=== PATIENT | female | born 1995 | race African-American/Black ===

== ENCOUNTER 2023-02-19 13:29 | Emergency (ER) | payer SELFPAY ==
--- NOTE | ~2023-02-19 | US_ITS ---
EXAMINATION: US OBSTETRICAL ULTRASOUND CLINICAL INFORMATION: Abdominal pain. Positive . COMPARISON: None available. LMP: 01/12/2023. Gestational age by maternal dates is 5 weeks 3 days. Estimated date of delivery by maternal dates is 10/19/2023. TECHNIQUE: Transabdominal and transvaginal pelvic ultrasound was performed. Transvaginal exam was performed for better visualization of the uterus and ovaries. FINDINGS: The uterus measures 10.2 x 5.6 x 6.9 cm in dimension. There is an intrauterine gestational sac. Mean Sac diameter measures 0.6 cm suggesting gestational age of 5 weeks 1 day. No pole or yolk sac seen. The right ovary is normal and measures 2.0 x 1.8 x 2.1 cm. The left ovary measures 4.1 x 3 x 3.7 cm. There are 2 left ovarian cysts measuring 2.8 x 2.4 x 2.6 cm and 1.7 x 2 x 2.3 cm. There is no fluid in the pelvis. US/US OB pelvic and transvaginal IMPRESSION: Intrauterine gestational sac. Mean sac diameter suggests gestational age 5 weeks 1 day. No pole or yolk sac seen.
[2023-02-19 13:41] VITALS: BP 122/71; PULSE 64; RESP 20; TEMP 36.6; O2SAT 99; BMI 45.7
--- NOTE | 2023-02-19 13:41 | ED.GENADULT ---
HPI - General Adult General Chief complaint: Abdominal Pain Stated complaint: Abdominal cramps - Time Seen by Provider: 02/19/23 22:34 Source: patient and family Mode of arrival: ambulatory History of Present Illness HPI narrative: 27-year-old female who presents with lower abdominal cramping but denies any vaginal bleeding or discharge and denies any dysuria. Patient states that she recently moved here from [place] and her LMP is 01/12. Patient denies any fever, chills, nausea, vomiting. Related Data Allergies Allergy/AdvReac Type Severity Reaction Status Date / Time No Known Allergies Allergy Verified 02/19/23 13:40 Review of Systems Review of Systems: Pertinent positives and negatives as stated in HPI PMFSH Past Medical History Source: nursing notes reviewed Social History Social History Advance Directives: No Advance Directives Information Provided: No Physical Exam ED Vital Signs: Vital Signs - 24 hr 02/19/23 13:41 02/19/23 21:04 02/19/23 22:27 Temperature 98 F 96.7 F L 98.2 F Pulse Rate 64 54 70 Respiratory Rate 20 16 18 Blood Pressure 122/71 103/58 L 105/83 Pulse Oximetry 99 100 99 Oxygen Delivery Method Room Air Room Air Room Air BMI result Body Mass Index 45.7 VITAL SIGNS: Reviewed. GENERAL: Well developed, well nourished, in no acute distress. HEAD: Normocephalic/atraumatic EYES: PERRLA, EOMI EARS: Ext canals without abnormality NOSE: Nares patent bilateral OROPHARYNX: no oral lesions noted, posterior pharynx clear NECK: Supple, no adenopathy LUNGS: Normal breath sounds. No adventitious sounds or accessory muscle use. SpO2<99> CARDIOVASCULAR: Regular rate and rhythm without noted murmurs ABDOMEN: Soft, non-tender, non-distended with bowel sounds. MUSCULOSKELETAL: No tenderness, deformities, or effusions noted on gross inspection. EXTREMITIES: No cyanosis, clubbing or edema. SKIN: Inspection of the skin reveals no rashes NEUROLOGIC: Alert and oriented x 4. Strength and sensation to light touch were grossly intact x 4. Course Course Course Narrative: This is an RME: Additional HPI, ROS, PE not included below will be deferred to primary provider. This is a 27 year old female, ?5 week , (3 miscarriages), presenting to the emergency department with a complaint of lower abdominal cramping for the last several weeks. She had an at home test last week. No vaginal bleeding or discharge. She is moving to the area and has not had any OBGYN care as of yet for this . Attended to be seen at [facility] last week but left without being seen due to extensive wait time. Last menstrual period January 12 Plan: Labs, UA, ultrasound Medical Decision Making Medical Decision Making [facility] Narrative: 27-year-old female with history and clinical presentation, DDX: Ectopic, IUP, UTI, SAB I reviewed all investigations and hematologic indices are negative for leukocytosis or left shift, platelet count is noted to be 140 and there are no comparison lab indices as patient is from [place]. She does appear to have a normocytic anemia which is likely chronic given the lack of clinical symptoms and no endorsement of any acute bleeding history. Chemistry indices are grossly within normal limits without RAY and there is no electrolyte or liver enzyme derangements. [id number]. Urinalysis is negative for UTI or hematuria and is urine positive. Ob ultrasound demonstrates IUP with gestational sac but no pole or yolk sac noted at this time. My interpretation is there is no evidence to suggest ectopic or SAB at this time, also there is no evidence of urinary tract infection and no clinical suggestion of an appendicitis or intra-abdominal infection. Patient was encouraged to take Tylenol for discomfort and that she would need to follow-up with an OB provider at her earliest convenience. In the meantime, I have provided her with a referral to follow-up with Dr. Haley. Differential Diagnosis Differential Diagnoses: The differential diagnosis associated with the presentation includes Please see the discussion above Admission/Observation Consideration of admission/observation: Escalation of care including admission/observation considered Please see the discussion above Lab Data [facility] Lab Attestation statement: I reviewed the patient's lab results. Please see the discussion above 02/19/23 16:10 02/19/23 16:10 Labs: Lab Results 02/19/23 02/19/23 Range/Units 16:02 16:10 WBC 8.0 (4.8-10.8) X10*3/uL RBC 4.20 (4.20-5.50) X10*6/uL Hgb 10.9 L (12.0-16.0) g/dl Hct 34.6 L (37.0-47.0) % MCV 82.4 (80.0-98.0) fL MCH 26.0 L (27.0-33.0) pg MCHC 31.5 (31.0-35.0) g/dl RDW 18.7 H (11.0-16.0) % Plt Count 140 L (160-400) X10*3/uL MPV 10.7 (9.4-12.3) fL Immature Gran % (Auto) 0.3 (0.0-0.4) % Neut % (Auto) 67.1 (45-73) % Lymph % (Auto) 23.0 (20-40) % [place] % (Auto) 7.4 (2-11) % Eos % (Auto) 1.9 (0-4) % Baso % (Auto) 0.3 (0-2) % Lymph # (Auto) 1.8 (1.2-4.9) X10*3/uL [place] # (Auto) 0.6 (0.1-1.2) X10*3/uL Eos # (Auto) 0.2 (0.0-0.4) X10*3/uL Baso # (Auto) 0.0 (0.0-0.2) X10*3/uL Abs Immat Gran (auto) 0.02 (0.00-0.03) X10*3/uL Absolute Neuts (auto) 5.4 (2.0-8.3) x10*3/uL Absolute Nucleated RBC 0.000 (0.0-0.012) X10*3/uL Nucleated RBC % (auto) 0.0 (0.0-0.2) /100WBC Sodium 139 (135-145) mmol/L Potassium 4.0 (3.3-5.1) mmol/L Chloride 107 (96-108) mmol/L Carbon Dioxide 24 (22-29) mmol/L Anion Gap 12 (12-20) BUN 9 (9-16) mg/dL Creatinine 0.76 (0.5-1.4) mg/dL Estim Creat Clear Calc 132.3 Estimated GFR > 60 Random Glucose 83 (60-115) mg/dL Calcium 9.4 (8.4-10.2) mg/dL Total Bilirubin 0.5 (0.0-1.0) mg/dL Direct Bilirubin 0.2 (0.0-0.5) mg/dL AST 15 (5-31) U/L ALT 17 (0-31) U/L Alkaline Phosphatase 52 (39-117) U/L Total Protein 7.6 (6.5-8.0) g/dL Albumin 4.3 (3.5-5.0) g/dL Beta HCG, Quant 4353 mIU/mL Urine Color Yellow Urine Appearance Clear Urine pH 6.5 (5.0-9.0) Ur Specific [place] >= 1.030 H (1.005-1.025) Urine Protein Negative (Neg-Trace) mg/dL Urine Glucose (UA) Negative (Negative) mg/dL Urine Ketones Negative (Negative) mg/dL Urine Blood Negative (Negative) Urine Nitrite Negative (Negative) Ur Leukocyte Esterase Negative (Negative) Urine Test POSITIVE H (NEGATIVE) Blood Type O Positive Radiology Impression Discussion of test interpretation with radiology: I have reviewed the radiologist's reading. Radiologist Impression: Please see the discussion above Discharge Plan Discharge Clinical Impression: Abdominal discomfort, Patient Disposition: Home, Self-Care Instructions: (ED), Vitamins (By mouth) Additional Instructions: 1. Continues to take vitamins. 2. You have been given a referral to follow-up with an vocational school teacher, please call the office 1st thing tomorrow morning to set up an appointment for re-evaluation and further outpatient management. 3. You may also reach out to the [facility] system for your obstetric care. Please return to the emergency room should you begin developing any loss of fluid, vaginal bleeding, development of fevers or chills. Referrals: Bob Haley MD [Physician] -
[2023-02-19 16:18] LABS: MANUAL DIFF FLAG NO
[2023-02-19 16:24] LABS: UPreg QC Valid YES; Urine Pregnancy POSITIVE (NEGATIVE)
[2023-02-19 16:25] LABS: Basophils Percent Auto 0.3 % (0-2); Eosinophils Absolute Auto 0.2 X10*3/uL (0.0-0.4); Eosinophils Percent Auto 1.9 % (0-4); Hematocrit 34.6 % (37.0-47.0); Hemoglobin 10.9 g/dl (12.0-16.0); Imm Gran Abs Auto 0.02 X10*3/uL (0.00-0.03); Imm Gran Pct Auto 0.3 % (0.0-0.4); Lymphocytes Absolute Auto 1.8 X10*3/uL (1.2-4.9); Mean Corpuscular HGB Conc 31.5 g/dl (31.0-35.0); Mean Corpuscular Volume 82.4 fL (80.0-98.0); Mean Platelet Volume 10.7 fL (9.4-12.3); Monocytes Absolute Auto 0.6 X10*3/uL (0.1-1.2); Monocytes Percent Auto 7.4 % (2-11); Neutrophils Absolute Auto 5.4 x10*3/uL (2.0-8.3); Neutrophils Percent Auto 67.1 % (45-73); PLT ABN DIST 1; Platelet Count 140 X10*3/uL (160-400); Red Cell Distribution Width 18.7 % (11.0-16.0); SCAN SMEAR FLAG 1
[2023-02-19 16:33] LABS: Alanine Aminotransferase 17 U/L (0-31); Albumin Level 4.3 g/dL (3.5-5.0); Alkaline Phosphatase 52 U/L (39-117); Anion Gap 12 (12-20); Aspartate Amino Transferase 15 U/L (5-31); Bilirubin Direct 0.2 mg/dL (0.0-0.5); Bilirubin Total 0.5 mg/dL (0.0-1.0); Blood Urea Nitrogen 9 mg/dL (9-16); Calcium 9.4 mg/dL (8.4-10.2); Carbon Dioxide 24 mmol/L (22-29); Chloride 107 mmol/L (96-108); Creatinine Clr Calc Pharmacy 132.3; Estimated Glomerular Filt Rate > 60; Glucose Random 83 mg/dL (60-115); Sodium 139 mmol/L (135-145); Total Protein 7.6 g/dL (6.5-8.0)
[2023-02-19 16:39] LABS: HCG Quantitative 4353 mIU/mL
[2023-02-19 21:04] VITALS: BP 103/58; PULSE 54; RESP 16; TEMP 35.9; O2SAT 100
[2023-02-19 22:27] VITALS: BP 105/83; PULSE 70; RESP 18; TEMP 36.8; O2SAT 99
[2023-02-19 22:57] LABS: Appearance Urine Clear; Color Urine Yellow; Glucose Urine UA Negative (Negative); Leukocyte Esterase Urine Negative (Negative); Nitrite Urine Negative (Negative); PH 6.5 (5.0-9.0); Specific Gravity - Urine >= 1.030 (1.005-1.025); Urine Blood Negative (Negative); Urine Ketones Negative (Negative); Urine Protein Negative (Neg-Trace)
[2023-02-19] MEDS: Acetaminophen 325 MG TABLET 975 MG PO (23:39)
== END 2023-02-19 23:56 | disposition home or self-care (01) ==
PROVIDERS: Physician Assistant Medical; Emergency Provider Student in an Organized Health Care Education/Training Program
DX: O26.91 Pregnancy related conditions, unspecified, first trimester (principal); R10.2 Pelvic and perineal pain; Z3A.01 Less than 8 weeks gestation of pregnancy; Z79.899 Other long term (current) drug therapy
CPT/HCPCS: 36415; 76801; 76817; 80048; 80076; 81003; 81025; 84702; 85025; 86900; 86901; 99284

== ENCOUNTER 2023-03-23 06:58 | Emergency (ER) | payer OTHER, SELFPAY ==
--- NOTE | 2023-03-23 | ECG_ITS ---
Test Reason : CP Blood Pressure : / mmHG Vent. Rate : 083 BPM Atrial Rate : 083 BPM P-R Int : 158 ms QRS Dur : 078 ms QT Int : 370 ms P-R-T Axes : 069 064 054 degrees QTc Int : 434 ms Normal sinus rhythm Right atrial enlargement Borderline ECG No previous ECGs available Referred By: Generic ED Physician Electronically Signed By:CRESENCIO RODRIGUEZ
[2023-03-23 07:00] VITALS: BP 136/90; PULSE 84; O2SAT 99
[2023-03-23 07:15] VITALS: BP 105/52; PULSE 85; RESP 16; TEMP 36.4; O2SAT 96; BMI 40.3
[2023-03-23 08:44] LABS: Basophils Percent Auto 0.1 % (0-2); Hematocrit 35.3 % (37.0-47.0); Hemoglobin 11.6 g/dl (12.0-16.0); Imm Gran Abs Auto 0.04 X10*3/uL (0.00-0.03); Imm Gran Pct Auto 0.3 % (0.0-0.4); Lymphocytes Absolute Auto 0.2 X10*3/uL (1.2-4.9); Lymphocytes Percent Auto 1.7 % (20-40); MANUAL DIFF FLAG SCAN; Mean Corpuscular HGB Conc 32.9 g/dl (31.0-35.0); Mean Corpuscular Hemoglobin 27.5 pg (27.0-33.0); Mean Corpuscular Volume 83.6 fL (80.0-98.0); Monocytes Absolute Auto 0.2 X10*3/uL (0.1-1.2); Monocytes Percent Auto 1.6 % (2-11); Neutrophils Absolute Auto 11.1 x10*3/uL (2.0-8.3); Neutrophils Percent Auto 96.3 % (45-73); Platelet Count 109 X10*3/uL (160-400); Red Blood Count 4.22 X10*6/uL (4.20-5.50); Red Cell Distribution Width 17.1 % (11.0-16.0); SCAN SMEAR FLAG 1; White Blood Count 11.6 X10*3/uL (4.8-10.8)
[2023-03-23 09:01] LABS: Alanine Aminotransferase 13 U/L (0-31); Albumin Level 4.1 g/dL (3.5-5.0); Alkaline Phosphatase 64 U/L (39-117); Anion Gap 14 (12-20); Aspartate Amino Transferase 15 U/L (5-31); Bilirubin Total 0.6 mg/dL (0.0-1.0); Blood Urea Nitrogen 10 mg/dL (9-16); Calcium 9.8 mg/dL (8.4-10.2); Carbon Dioxide 20 mmol/L (22-29); Chloride 107 mmol/L (96-108); Creatinine Clr Calc Pharmacy 147.9; Estimated Glomerular Filt Rate > 60; Glucose Random 126 mg/dL (60-115); Potassium 4.3 mmol/L (3.3-5.1); Sodium 137 mmol/L (135-145); Total Protein 7.6 g/dL (6.5-8.0)
[2023-03-23 09:22] LABS: Influenza A PCR NEGATIVE (Negative); Influenza B PCR NEGATIVE (Negative); Resp Syncy Virus RNA Qual PCR NEGATIVE (Negative); SARS COV2 PCR INHOUSE NEGATIVE (Negative)
--- NOTE | 2023-03-23 09:35 | PC.NURSE ---
pt now complaining of chest discomfort to registration, adding on ekg
[2023-03-23 09:47] LABS: SLIDE REVIEW VERIFIED
[2023-03-23 09:57] VITALS: BP 117/77; PULSE 84; RESP 18; TEMP 36.6; O2SAT 100
[2023-03-23] MEDS: Metoclopramide HCl 10 MG/2 ML VIAL IVPUSH (12:07)
[2023-03-23] MEDS: diphenhydrAMINE HCL 50 MG/ML VIAL 25 MG IVPUSH (12:07)
[2023-03-23] MEDS: 0.9 % Sodium Chloride 1,000 ML 999 ML IV ×2 (12:08)
--- NOTE | 2023-03-23 12:15 | ED_ITS ---
HPI - General Chief complaint: Nausea/Vomiting/Diarrhea Stated complaint: nausea/vomiting dizziness Time Seen by Provider: 03/23/23 11:39 Source: patient and old records reviewed Mode of arrival: ambulatory Limitations: no limitations History of Present Illness HPI Narrative: 27 yo female G6P 3 miscarriages and 2 live births - currently 9 weeks here with c/o n/v chills and feeling week. she has abdominal cramping. She has not had nausea like this during her prior pregnancies only right before she had a miscarriage. She is trying to get established with OBGYN after moving from [place]. She is on prenatals. No vaginal bleeding. She c/o chest pain in the waited room and is very anxious she is having another miscarriage. She is tearful. She denies food exposures or sick contacts at home. She is asking for US to see the fetus. Complaint: other (concern for miscarriage, n/v) Onset (ago): day(s) (1) Pain Consistency: intermittent Location: abdomen Severity: mild Quality: Cramping Radiation: pelvis Relieving factors: none Exacerbating factors: none Associated symptoms: nausea, vomiting and other (feels hot, vomited so hard at one point she saw a streak of blood) Vaginal discharge: none Vaginal bleeding: none Patient : Yes Related Data Previous Rx's Medication Instructions Recorded metoclopramide HCl 10 mg tablet 10 mg PO Q6H PRN nausea and 03/23/23 (Reglan) vomiting #30 tabs Allergies Allergy/AdvReac Type Severity Reaction Status Date / Time No Known Allergies Allergy Verified 03/23/23 07:15 [facility] Past Medical History Attestation statement: The following information was validated with the patient. Medical History Miscarriage Social History Social History (Updated 03/23/23 @ 12:23 by Barbara Obando DO) Alcohol intake: never Patient Tobacco Use Status: Never used Tobacco Smoked in Last 30 Days: No Use of substances other than those prescribed or required for medical reasons: No Advance Directives: No Patient : Yes Physical Exam 2 Vital Signs: Vital Signs: Last Vital Signs Temp 98.7 F 03/23/23 15:55 Pulse 93 03/23/23 15:55 Resp 18 03/23/23 15:55 BP 119/58 L 03/23/23 15:55 Pulse Ox 97 03/23/23 15:55 O2 Del Method Room Air 03/23/23 15:55 BMI result Body Mass Index 40.3 Appearance: Alert. Oriented X3. No acute distress. Eyes: Pupils equal, round and reactive to light. ENT: Pharynx mildly dry MM, faint petechia noted on bilateral cheeks Neck: Normal inspection. Neck supple. CVS: Normal heart rate and rhythm. Pulses normal. Respiratory: No respiratory distress. Breath sounds normal. Abdomen: Soft and nontender. Skin: Skin warm and dry. Normal skin color. Normal skin turgor. Extremities: No lower extremity edema. Neuro: Oriented X 3. No motor deficit. No sensory deficit. Medications Administered Discontinued Medications Generic Name Dose Route Start Last Admin Trade Name Freq PRN Reason Stop Dose Admin Diphenhydramine HCl 25 mg 03/23/23 11:40 03/23/23 12:07 Diphenhydramine Hcl 50 Mg/Ml Vial IVPUSH 03/23/23 11:41 25 mg ONCE ONE Administration Sodium Chloride 1,000 mls @ 999 mls/hr 03/23/23 11:45 03/23/23 16:07 Ns IV 03/23/23 12:45 Infused .Q1H1M ANNA Infusion Sodium Chloride 1,000 mls @ 999 mls/hr 03/23/23 11:45 03/23/23 16:07 Ns IV 03/23/23 12:45 Infused .Q1H1M ANNA Infusion Metoclopramide HCl 10 mg 03/23/23 11:40 03/23/23 12:07 Metoclopramide Hcl 10 Mg/2 Ml Vial IVPUSH 03/23/23 11:41 10 mg ONCE ONE Administration Ondansetron HCl 4 mg 03/23/23 16:00 03/23/23 16:06 Ondansetron Hcl 4 Mg/2 Ml Vial IVPUSH 03/23/23 16:01 4 mg ONCE ONE Administration Medical Decision Making Medical Decision Making MDM Narrative: 27 yo female [id number] here with c/o n/v and dizziness not feeling well since yesterday no sick contacts, no food exposures at this time will need labs, IVF x 2L, UA, bedside US has no vaginal bleeding. Possible UTI vs viral syndrome vs hyperemesis. Differential Diagnosis Differential Diagnoses: The differential diagnosis associated with the presentation includes UTI vs viral syndrome vs hyperemesis. Admission/Observation Consideration of admission/observation: Escalation of care including admission/observation considered able to tolerate PO feels better stable for DC Lab Data [facility]DM Lab Attestation statement: I reviewed the patient's lab results. 03/23/23 08:36 03/23/23 08:36 Labs: Lab Results 03/23/23 03/23/23 Range/Units 08:36 15:09 WBC 11.6 H (4.8-10.8) X10*3/uL RBC 4.22 (4.20-5.50) X10*6/uL Hgb 11.6 L (12.0-16.0) g/dl Hct 35.3 L (37.0-47.0) % MCV 83.6 (80.0-98.0) fL MCH 27.5 (27.0-33.0) pg MCHC 32.9 (31.0-35.0) g/dl RDW 17.1 H (11.0-16.0) % Plt Count 109 L (160-400) X10*3/uL MPV 10.0 (9.4-12.3) fL Immature Gran % (Auto) 0.3 (0.0-0.4) % Neut % (Auto) 96.3 H (45-73) % Lymph % (Auto) 1.7 L (20-40) % [place] % (Auto) 1.6 L (2-11) % Eos % (Auto) 0.0 (0-4) % Baso % (Auto) 0.1 (0-2) % Lymph # (Auto) 0.2 L (1.2-4.9) X10*3/uL [place] # (Auto) 0.2 (0.1-1.2) X10*3/uL Eos # (Auto) 0.0 (0.0-0.4) X10*3/uL Baso # (Auto) 0.0 (0.0-0.2) X10*3/uL Abs Immat Gran (auto) 0.04 H (0.00-0.03) X10*3/uL Absolute Neuts (auto) 11.1 H (2.0-8.3) x10*3/uL Absolute Nucleated RBC 0.000 (0.0-0.012) X10*3/uL Nucleated RBC % (auto) 0.0 (0.0-0.2) /100WBC Smear Tech's Comments VERIFIED Sodium 137 (135-145) mmol/L Potassium 4.3 (3.3-5.1) mmol/L Chloride 107 (96-108) mmol/L Carbon Dioxide 20 L (22-29) mmol/L Anion Gap 14 (12-20) BUN 10 (9-16) mg/dL Creatinine 0.73 (0.5-1.4) mg/dL Estim Creat Clear Calc 147.9 Estimated GFR > 60 Random Glucose 126 H (60-115) mg/dL Calcium 9.8 (8.4-10.2) mg/dL Total Bilirubin 0.6 (0.0-1.0) mg/dL AST 15 (5-31) U/L ALT 13 (0-31) U/L Alkaline Phosphatase 64 (39-117) U/L Total Protein 7.6 (6.5-8.0) g/dL Albumin 4.1 (3.5-5.0) g/dL Beta HCG, Quant [id number] mIU/mL Urine Color Yellow Urine Appearance Clear Urine pH 6.0 (5.0-9.0) Ur Specific [place] 1.010 (1.005-1.025) Urine Protein Negative (Neg-Trace) mg/dL Urine Glucose (UA) Negative (Negative) mg/dL Urine Ketones Negative (Negative) mg/dL Urine Blood Negative (Negative) Urine Nitrite Negative (Negative) Ur Leukocyte Esterase Trace H (Negative) Urine RBC 0-2 (0-2) /HPF Urine WBC 0-5 (0-5) /HPF Ur Squamous Epith Cells 0-2 (0-2) /HPF Urine Bacteria None Seen (None Seen) Hyaline Casts 0-2 (0-2) /LPF Influenza Type A (PCR) NEGATIVE (Negative) Influenza Type B (PCR) NEGATIVE (Negative) RSV RNA Qual (PCR) NEGATIVE (Negative) SARS-CoV-2 RNA (RT-PCR) NEGATIVE (Negative) Independent Interpretation I performed an independent interpretation of an: EKG and Ultrasound (IUP cardiac flicker) Interpretation: Rate: 83 Rhythm: NSR [place]: normal Normal P waves. Normal SAIGE. Normal QRS complex. ST T wave : nonspecific, no ZAID qTC:434 prior studies: no acute ischemia The study has been interpreted contemporaneously by me. . External Record Review External record reviewed: Inpatient record Prescription Management I considered prescription management with: Other Procedures Procedure Narrative Procedure Narrative: bedside US single IUP cardiac flicker noted Discharge Plan Discharge Clinical Impression: Hyperemesis Patient Disposition: Home, Self-Care Instructions: Hyperemesis Gravidarum (ED) Additional Instructions: advance diet as tolerated - eat a bland for 48 hours, push fluids. follow up with your OBGYN as soon as you can. return for worsening pain, inability to eat or drink, bleeding or any other concerns. Prescriptions: New metoclopramide HCl [Reglan] 10 mg tablet 10 mg PO Q6H PRN (Reason: nausea and vomiting) Qty: 30 0RF
[2023-03-23 12:29] VITALS: RESP 16
[2023-03-23 15:16] LABS: Appearance Urine Clear; Color Urine Yellow; Glucose Urine UA Negative (Negative); Leukocyte Esterase Urine Trace (Negative); Nitrite Urine Negative (Negative); UMIC TRIGGER UACC YES; Urine Blood Negative (Negative); Urine Ketones Negative (Negative); Urine Protein Negative (Neg-Trace)
[2023-03-23 15:55] VITALS: BP 119/58; PULSE 93; RESP 18; TEMP 37.1; O2SAT 97
[2023-03-23] MEDS: ondansetron HCL 4 MG/2 ML VIAL IVPUSH (16:06)
[2023-03-23 16:07] LABS: RBC Urine 0-2 /HPF (0-2); Squamous Epithelial Cell Urine 0-2 /HPF (0-2); WBC Urine 0-5 /HPF (0-5)
[2023-03-23 16:08] LABS: Bacteria Urine None Seen (None Seen); Hyaline Casts Urine 0-2 /LPF (0-2)
== END 2023-03-23 16:35 | disposition home or self-care (01) ==
PROVIDERS: Emergency Provider Emergency Medicine
DX: O21.0 Mild hyperemesis gravidarum (principal); Z3A.09 9 weeks gestation of pregnancy; Z20.822 Contact with and (suspected) exposure to COVID-19; Z20.828 Contact with and (suspected) exposure to other viral communicable diseases
CPT/HCPCS: 0241U; 36415; 80053; 81001; 84702; 85025; 93005; 96361; 96374; 96375; 99285; J1200; J2405; J2765

== ENCOUNTER → 2023-03-23 09:47 | Outpatient (BNV) | payer OTHER, SELFPAY | PROVIDERS: Emergency Provider Emergency Medicine; Visit Provider Internal Medicine | DX: R07.9 Chest pain, unspecified (principal) | CPT/HCPCS: 93010 ==